=== PATIENT | male | born 1935 | race Caucasian/White ===

== ENCOUNTER 2017-09-05 13:14 | Outpatient (CLI) | payer MEDICARE, OTHER, SELFPAY ==
[2017-09-05] VITALS (10 sets, daily range): BP systolic 148–167; BP diastolic 53–95; PULSE 49–55; RESP 16–18; TEMP 36.2; O2SAT 96–99
--- NOTE | 2017-09-05 13:16 | DI.RAD.S_ITS ---
PROCEDURE: PAIN L/SI FACET INJ/BLK 1STL INDICATIONS: Lumbosacral spondylosis with facet arthropathy FINDINGS: Fluoroscopic spot filming was performed to verify placement of spinal needles at the right and left L5-S1 level(s), as labeled on the films. Appropriate location(s) of the needle tip(s) was confirmed by injection of iodinated contrast. IMPRESSION: Successful needle tip localization at the right and left L5-S1 facet region for epidural steroid injection. Dictated by: Sanket Garcia M.D. on 09/05/2017 at 16:25 Approved by: Sanket Garcia M.D. on 09/05/2017 at 16:34
--- NOTE | 2017-09-05 13:55 | PM.PROC.1 ---
Procedures Date/Time Date of procedure: 09/05/17 Time of procedure: 13:55 General Procedure description: PREOP DIAGNOSIS 1. FACET ARTHROPATHY, 2. AXIAL LBP, 3. MULTILEVEL DDD, POST OP DIAGNOSIS 1. FACET ARTHROPATHY, 2. AXIAL LBP, 3. MULTILEVEL DDD, PROCEDURES 1. FLUORSCOPICALLY GUIDED CONTRAST CONTROLLED FACET JOINT INJECTIONS BILATERAL L5/S1 PHUSICIAN: Pablo Mandujano, INDICATIONS Wounds then is referred by for treatment of Axial LBP FINDINGS Multilevel Facet Arthropathy with Clinically significant axial LBP DESCRIPTION OF PROCEDURE Fluoroscopically guided, contrast-controlled bilateral L5/S1 facet joint injections. Following denial of allergy and review of potential side effects and complications, including, but not necessarily limited to, infection, allergic reaction, local tissue breakdown, stroke, temporary or permanent nerve injury, paralysis, and possible , the patient indicated that the patient understood and agreed to proceed. An informed consent document was signed by the patient, witnessed by a nurse, and placed in the patient's chart. Additionally, other treatment options including medications, modalities, and physical therapy were reviewed with the patient. After review of previous anaesthesic history and IV conscious sedation the patient was deemed safe to proceed with todays procedure with IV conscious sedation as ASA class II designation. Safety time-out was performed to confirm patient ID, procedure to be performed and site of procedure. IV sedation was accomplished with a combination of 2mg of Versed administered by the RN after DO order, titrated to patient comfort during the course of the procedure while the patient remained responsive to all verbal commands In the prone position, following sterile prep and drape of the lumbar region, the posterior aspect of the L5/S1 facet joints were identified fluoroscopically. The skin was anesthetized via a 25-gauge 1.5-inch needle with 1% lidocaine solution into the corresponding facet joints. At this point, a 22-gauge 5-inch spinal needle was atraumatically introduced and advanced under fluoroscopic guidance into the corresponding facet joints. Following negative aspiration, injections of approximately 0.2-cc of Isovue 200 confirmed interarticular placement without vascular uptake. The identical procedure was then performed at the L5/S1 facet joints on the left. Radiological data, including multiple fluoroscopic views of the lumbosacral spine, reveal a spinal needle at the L5/S1 facet joints bilaterally. Subsequent views show flow of contrast material both superiorly and inferiorly within the joint space without vascular or intrathecal uptake. At this point, a total of 0.5 cc including a mixture of 0.25 cc Marcaine and 0.25 cc betamethasone was injected without complication into each of the corresponding facet joints. The procedure tolerated the procedure well without signs or symptoms of complications prior to transfer to the recovery area continued monitoring without incident. The patient was then transferred to the recovery area where they were observed for an appropriate period of time after the injection. The patient reported a VAS score of 7 prior to the procedure and a post-procedure VAS of 0. Total Fluoroscopy Time: 21.0 seconds Total conscious sedation time: 24 min POST OP INSTRUCTIONS The patient was provided a Pain Log to continue to record their response to the target-specific procedure prior to follow-up visit with their referring physician. Additionally, specific post-injection care instructions and a contact number to our office were provided if concerns arise regarding possible complications associated with the procedure are suspected. Pablo Mandujano, Complications: none
[2017-09-05] MEDS: MIDAZOLAM 5 MG/5 ML VIAL IV (13:56)
[2017-09-05] MEDS: BUPIVACAINE 0.5% (PF) VIAL 2 ML INJ (14:01)
[2017-09-05] MEDS: LIDOCAINE 1% 20 ML INJ 5 ML INJ (14:01)
[2017-09-05] MEDS: BETAMETHASONE 30 MG/5 ML MDV 12 MG INJ (14:01)
[2017-09-05] MEDS: IOPAMIDOL 15 ML VIAL 3 ML INJ (14:01)
--- NOTE | 2017-09-06 15:21 | PC.NURSE ---
FOLLOW UP CALL MADE, PT STATES HE FEELS WONDERFUL AND STATES HIS PAIN IS 2/10. DENIES QUESTIONS OR CONCERNS AT THIS TIME. ADVISED TO CALL OFFICE # IF ANYTHING COMES UP AND THAT WE LOOK FORWARD TO SEEING HIM AT HIS FOLLOW UP APPT.
== END 2017-09-05 14:49 | disposition home or self-care (01) ==
PROVIDERS: PCP Family Medicine; Visit Provider Physical Medicine & Rehabilitation
DX: M47.817 Spondylosis without myelopathy or radiculopathy, lumbosacral region (principal); M51.37 Other intervertebral disc degeneration, lumbosacral region; M54.5 Low back pain; Z98.1 Arthrodesis status
CPT/HCPCS: 64493; 99152; J0702; J2250

== ENCOUNTER 2017-10-03 12:52 | Outpatient (CLI) | payer MEDICARE, OTHER, SELFPAY ==
[2017-10-03] VITALS (11 sets, daily range): BP systolic 125–165; BP diastolic 50–76; PULSE 65–73; RESP 16–20; TEMP 36.2; O2SAT 94–99
--- NOTE | 2017-10-03 12:53 | DI.RAD.S_ITS ---
PROCEDURE: PAIN L/S FACET INJ/BLK 1ST NASIMA COMPARISON: None. INDICATIONS: Lumbosacral spondylosis status post fusion FINDINGS: 6 images show bilateral L5 and S1 needle tip localization is 4 medial branch block of these individual bilateral nerve roots. IMPRESSION: Successful needle tip localization for bilateral L5 and S1 medial nerve root branch locking. Dictated by: Sanket Garcia M.D. on 10/03/2017 at 16:14 Approved by: Sanket Garcia M.D. on 10/03/2017 at 16:15
--- NOTE | 2017-10-03 13:02 | PM.PROC.1 ---
Procedures Date/Time Date of procedure: 10/03/17 Time of procedure: 13:02 General Procedure description: POST OP DIAGNOSIS 1. FACET ARTHROPATHY PROCEDURES 1. BILATERAL- L5 and S1 MB BLOCKS PHYSICIAN: DO MIRA Ulrich Angelito is referred by Dr. Sorenson for treatment of Bilateral Axial LBP. DESCRIPTION OF PROCEDURE Fluoroscopically guided, contrast-controlled bilateral L5 and S1 medial branch blocks with 0.5cc of 0.5% Marcaine. Following denial of allergy and review of potential side effects and complications, including, but not necessarily limited to, infection, allergic reaction, local tissue breakdown, nerve injury, paralysis, stroke and possible , the patient indicated that the patient understood and agreed to proceed. An informed consent document was signed by the patient, witnessed by a nurse, and placed in the patient's chart. After review of previous anaesthesic history and IV conscious sedation the patient was deemed safe to proceed with todays procedure with IV conscious sedation as ASA class II designation. Safety time-out was performed to confirm patient ID, procedure to be performed and site of procedure. IV sedation was accomplished with a combination of 4mg of Versed was administered by the RN after DO order, titrated to patient comfort during the course of the procedure while the patient remained responsive to all verbal commands In the prone position, following sterile prep and drape of the lumbar region, the right L5 and S1 anatomical location of the medial branch of the dorsal ramus was identified fluoroscopically. Subsequently an anesthetic skin wheal using 1% lidocaine solution was initiated at each of the anatomical spots. Subsequently then a 22-gauge 3.5-inch spinal needle was atraumatically introduced and advanced under fluoroscopic guidance at each of the corresponding sites at the right L5 and S1 MB. After negative aspiration, 0.2 cc of Isovue 200 was injected, confirming placement without vascular or intrathecal uptake. Subsequently then 0.5 cc of 0.5% Marcaine solution was injected at each of the corresponding sites at the right L5 and S1 medial branch locations. The identical procedure was replicated on the left. The patient tolerated the procedure well without signs or symptoms of complications. The patient tolerated the procedure well without signs or symptoms of complications prior to transfer to the recovery area continued monitoring without incident. Post-procedure, the patient was monitored initiating provocative activities to measure the amount of relief from block of the facetogenic pain. The patient reported a VAS of 7 prior to the procedure and a post-procedure VAS of 1. It has been a pleasure to assist in the diagnostic and therapeutic care of your patient. Total Fluoroscopy Time: 24.8 seconds Total Conscious Sedation Time: 24min POST OP INSTRUCTIONS The patient was provided with a Pain Log to complete over the next several hours and subsequent days prior to the patient's follow up with the ordering physician. If the patient has assistant superintendent for curriculum relief to the solution applied, then they may be a candidate for medial branch rhizotomy. The patient is aware, was provided, once again, with a Pain Log and will follow up with the referring physician for review and clinical correlation Pablo Mandujano DO Complications: none
[2017-10-03] MEDS: MIDAZOLAM 5 MG/5 ML VIAL IV (13:26)
[2017-10-03] MEDS: BUPIVACAINE 0.5% (PF) VIAL 2 ML INJ (13:32)
[2017-10-03] MEDS: IOPAMIDOL 15 ML VIAL 3 ML INJ (13:33)
[2017-10-03] MEDS: LIDOCAINE 1% 20 ML INJ 10 ML INJ (13:33)
--- NOTE | 2017-10-04 14:10 | PC.NURSE ---
FOLLOW UP PHONE CALL MADE. PT C/O NIGHT SWEATS AND INSOMNIA AFTER PROCEDURE. ENSURED PT THAT THOSE ARE BOTH COMMON SIDE EFFECTS OF MEDICATION USED AND THAT THEY WILL DECREASE. SUGGESTED PT USE OTC IBUPROFEN OR TYLENOL FOR NIGHT SWEATS AND OTC SLEEP AID FOR INSOMNIA. PT DENIED OTHER CONCERNS.
== END 2017-10-03 14:13 ==
LOC: RAD 12:53
PROVIDERS: PCP Family Medicine; Visit Provider Physical Medicine & Rehabilitation
DX: M47.817 Spondylosis without myelopathy or radiculopathy, lumbosacral region (principal); Z98.1 Arthrodesis status
CPT/HCPCS: 64493; 99152; J2250

== ENCOUNTER 2017-11-22 10:30 | Outpatient (CLI) | payer MEDICARE, OTHER, SELFPAY ==
[2017-11-22] VITALS (18 sets, daily range): BP systolic 132–178; BP diastolic 64–109; PULSE 53–65; RESP 12–20; TEMP 36.4; O2SAT 93–98
--- NOTE | 2017-11-22 10:31 | DI.RAD.S_ITS ---
PROCEDURE: PAIN L/S MED/LAT N RFA BILAT INDICATIONS: Lumbosacral spondylosis status post fusion FINDINGS: Fluoroscopic spot filming was performed to verify placement of spinal needles at the left L5 and S1 level(s), as labeled on the films. Due to technologist error, the right-sided images were not saved. Dictated by: Manuel Rosas M.D. on 11/22/2017 at 13:33 Approved by: Manuel Rosas M.D. on 11/22/2017 at 13:35
--- NOTE | 2017-11-22 10:39 | PC.NURSE ---
constant lower back pain, non radiating, denies fever,chills and vomiting,.
[2017-11-22] MEDS: BUPIVACAINE 0.25% (PF) VIAL 30 ML INJ (11:15)
[2017-11-22] MEDS: MIDAZOLAM 5 MG/5 ML VIAL IV (11:16)
[2017-11-22] MEDS: LIDOCAINE 1% 20 ML INJ INJ (11:16)
[2017-11-22] MEDS: fentaNYL 100 MCG/2 ML INJ 50 MCG IV (11:47)
--- NOTE | 2017-11-22 12:01 | PC.NURSE ---
getting pt off gurney and into W/C, pt alert and able to transfer to w/c with minimal assist. taking to pre procedure room.
--- NOTE | 2017-11-22 12:11 | P.PCN_ITS ---
Procedures Date/Time Date of procedure: 11/22/17 Time of procedure: 12:09 General Procedure description: PREOP DIAGNOSIS 1. RECALCITRANT FACET ARTHROPATHY, POST OP DIAGNOSIS 1. RECALCITRANT FACET ARTHROPATHY PROCEDURES 1. BILATERAL L5 MEDIAL BRANCH RADIOFREQUENCY NEUROTOMY AND S1 DORSAL RAMUS BRANCH RADIOFREQUENCY NEUROTOMY, PHYSICIAN: Pablo Mandujano DO INDICATIONS: is referred by for treatment of facet arthropathy. DESCRIPTION OF PROCEDURE Right and L5 medial branch radiofrequency neurotomy and right S1 dorsal ramus radiofrequency neurotomy under fluoroscopy with conscious sedation. The patient is well known to this clinic having undergone previous facet injections with good but temporary relief. The patient has experienced appropriate, concordant relief with previous facet and median branch blocks but the patient's pain has been recalcitrant to further conservative measures. Therefore, based upon the patient's relief and persistent symptoms, the patient is considered an appropriate candidate for facet rhizotomy. All of the patient' s questions regarding the risks versus benefits of the procedure, including, but not limited to, bleeding, infection, temporary as well as lasting nerve injury, paralysis, stroke, and , as well treatment alternatives were answered to satisfaction. After obtaining informed consent, denial of pertinent drug allergies, as well as being made aware of the potential risks of bleeding, infection, spinal cord trauma, paralysis, temporary and permanent nerve damage, seizure, stroke, and possible , the patient was brought to the fluoroscopy suite and positioned prone on the fluoroscopy table. The lumbar region was prepped with Betadine and covered with a fenestrated drape in the usual sterile fashion. Appropriate monitors applied including pulse oximeter, pulse, and blood pressure for regular monitoring throughout the procedure. After review of previous anaesthesic history and IV conscious sedation the patient was deemed safe to proceed with todays procedure with IV conscious sedation as ASA class II designation. Safety time-out was performed to confirm patient ID, procedure to be performed and site of procedure. IV sedation was accomplished with a combination of 5mg of Versed and 50mcg of Fentanyl administered by the RN after DO order, titrated to patient comfort during the course of the procedure while the patient remained responsive to all verbal commands. After local infiltration using 1% lidocaine, under fluoroscopic guidance, a 10- cm RF insulated needle with a 10-mm active tip was positioned parallel to the junction of the right sacral ala and the superior articulating process where the S1 dorsal ramus resides. Needle placement was confirmed with sensory stimulation at 50 Hz, with motor stimulation of .5v on the right which produced local stimulation without radicular component. The stimulation was then increased to 1.5v with, once again, only local multifidus stimulation without radicular component. This was then followed by two discreet lesions performed at 80 degrees Celsius for 90 seconds each. The needle was then removed and the identical procedure was performed along the length of the right L5 medial branch with motor stimulation at .7v on the right. The identical procedure was repeated on the left. The patient tolerated the procedure well without signs or symptoms of complications prior to transfer to the recovery area continued monitoring without incident. The patient was then transferred to the recovery area where they were observed for an appropriate period of time after the injection. The patient reported a VAS score of 9 prior to the procedure and a post-procedure VAS of 0. Total Fluoroscopy Time: 22.7 seconds Total Conscious Sedation Time: 34min POST OP INSTRUCTIONS The patient was provided a Pain Log to continue to record the patient's response to the target-specific procedure prior to the patient's follow-up visit with the referring physician. Additionally, specific post-injection care instructions and a contact number to our office were provided if concerns arise regarding possible complications associated with the procedure are suspected. Pablo Mandujano DO Complications: none
--- NOTE | 2017-11-22 12:12 | PC.NURSE ---
accepted care of pt at 1206 in post op area. pt in stable condition
== END 2017-11-22 12:43 | disposition home or self-care (01) ==
LOC: RAD 10:31
PROVIDERS: PCP Family Medicine; Visit Provider Physical Medicine & Rehabilitation
DX: M47.817 Spondylosis without myelopathy or radiculopathy, lumbosacral region (principal); M46.96 Unspecified inflammatory spondylopathy, lumbar region; Z98.1 Arthrodesis status
CPT/HCPCS: 64635; 99152; 99153; J2250; J3010

== ENCOUNTER → 2018-07-25 09:22 | Outpatient (CLI) | payer MEDICARE, OTHER, SELFPAY ==
--- NOTE | 2018-07-25 09:25 | DI.RAD.S_ITS ---
PROCEDURE: XR LUMBAR SPINE MIN 4V INDICATIONS: Lower Back pain TECHNIQUE: 5 views of the lumbar spine were acquired. COMPARISON: None. FINDINGS: Bones: 5 nonrib-bearing vertebrae are present. Patient is status post laminectomy and transpedicular fusion at L3-L5 levels with intervertebral spacer placement at L3-4 and L4-5 levels. No gross hardware loosening or failure. There is normal bony alignment. No vertebral body compression fractures. Degenerative endplate changes are noted at L2-3 and L5-S1 levels. No suspicious bony lesions. Soft tissues: Overlying bowel gas pattern is normal. No suspicious soft tissue calcifications. Oblique images: No gross pars defects. No significant neuroforaminal narrowing. IMPRESSION: Post fusion changes at L3-L5 levels with anatomic lumbar spine alignment. No gross hardware complication. No acute compression fracture or spondylolisthesis. No significant neuroforaminal narrowing. Dictated by: Prasanna Ambrocio M.D. on 07/25/2018 at 12:53 Approved by: Prasanna Ambrocio M.D. on 07/25/2018 at 12:56
== END ==
PROVIDERS: PCP Family Medicine; Visit Provider Physical Medicine & Rehabilitation
DX: M54.5 Low back pain (principal); M47.816 Spondylosis without myelopathy or radiculopathy, lumbar region; M47.817 Spondylosis without myelopathy or radiculopathy, lumbosacral region; Z98.1 Arthrodesis status; M46.93 Unspecified inflammatory spondylopathy, cervicothoracic region; N28.9 Disorder of kidney and ureter, unspecified
CPT/HCPCS: 72110; 99214

== ENCOUNTER 2018-08-07 12:55 | Outpatient (CLI) | payer MEDICARE, OTHER, SELFPAY ==
[2018-08-07] VITALS (9 sets, daily range): BP systolic 130–160; BP diastolic 59–74; PULSE 56–65; RESP 16–18; TEMP 36.1; O2SAT 92–97
--- NOTE | 2018-08-07 12:56 | DI.RAD.S_ITS ---
PROCEDURE: PAIN L/SI FACET INJ/BLK 1STL INDICATIONS: 53771, [id number] Bilateral L2/3, L5/S1 Facet Injection FINDINGS: Fluoroscopic spot filming was performed to verify placement of spinal needles at the L2-L3 and L5-S1 level(s) Appropriate location(s) of the needle tip(s) was confirmed by injection of iodinated contrast. Dictated by: Manuel Rosas M.D. on 08/07/2018 at 15:03 Approved by: Manuel Rosas M.D. on 08/07/2018 at 15:06
[2018-08-07] MEDS: MIDAZOLAM 5 MG/5 ML VIAL IV (13:38)
[2018-08-07] MEDS: fentaNYL 100 MCG/2 ML INJ 50 MCG IV (13:40)
[2018-08-07] MEDS: IOPAMIDOL 15 ML VIAL 3 ML INJ (13:45)
[2018-08-07] MEDS: BUPIVACAINE 0.5% (PF) VIAL 2 ML INJ (13:46)
[2018-08-07] MEDS: LIDOCAINE 1% 20 ML INJ 5 ML INJ (13:46)
[2018-08-07] MEDS: BETAMETHASONE 30 MG/5 ML MDV 12 MG INJ (13:46)
--- NOTE | 2018-08-07 13:58 | PC.NURSE ---
Pt returned via wheelchair awake and alert and able to transfer from w/c to chair with standby assist. Resumed monitoring from Urmila HUBBARD.
--- NOTE | 2018-08-07 14:00 | P.PCN_ITS ---
Procedures Date/Time Date of procedure: 08/07/18 Time of procedure: 13:58 General Procedure description: PREOP DIAGNOSIS 1. FACET ARTHROPATHY, 2. AXIAL LBP, 3. MULTILEVEL DDD, POST OP DIAGNOSIS 1. FACET ARTHROPATHY, 2. AXIAL LBP, 3. MULTILEVEL DDD, PROCEDURES 1. FLUORSCOPICALLY GUIDED CONTRAST CONTROLLED FACET JOINT INJECTIONS BILATERAL L2/3, L5/S1 SURGEON: Pablo Mandujano, INDICATION Angelito is referred by Dr. Sorenson is referred for treatment of Axial LBP FINDINGS Multilevel Facet Arthropathy with Clinically significant axial LBP DESCRIPTION OF PROCEDURE Fluoroscopically guided, contrast-controlled bilateral L2/3, L3/4 facet joint injections. Following review of allergy and review of potential side effects and complications, including, but not necessarily limited to, infection, allergic reaction, local tissue breakdown, stroke, temporary or permanent nerve injury, paralysis, and possible , the patient indicated that the patient understood and agreed to proceed. An informed consent document was signed by the patient, witnessed by a nurse, and placed in the patient's chart. Additionally, other treatment options including medications, modalities, and physical therapy were reviewed with the patient. After review of previous anaesthesic history and IV conscious sedation the patient was deemed safe to proceed with todays procedure with IV conscious sedation as ASA class II designation. Safety time-out was performed to confirm patient ID, procedure to be performed and site of procedure. IV sedation was accomplished with a combination of 4mg of Versed and 50mcg of Fentanyl administered by the RN after DO order, titrated to patient comfort during the course of the procedure while the patient remained responsive to all verbal commands In the prone position, following sterile prep and drape of the lumbar region, the posterior aspect of the L2/3, L5/S1 facet joints were identified fluoroscopically. The skin was anesthetized via a 25-gauge 1.5-inch needle with 1% lidocaine solution into the corresponding facet joints. At this point, a 22- gauge 3.5-inch spinal needle was atraumatically introduced and advanced under fluoroscopic guidance into the corresponding facet joints. Following negative aspiration, injections of approximately 0.2-cc of Isovue 200 confirmed interarticular placement without vascular uptake. The identical procedure was then performed at the L2/3, L5/S1 facet joints on the left. Radiological data, including multiple fluoroscopic views of the lumbosacral spine, reveal a spinal needle at the L2/3, L5/S1 facet joints bilaterally. Subsequent views show flow of contrast material both superiorly and inferiorly within the joint space without vascular or intrathecal uptake. At this point, a total of 0.5cc including a mixture of 0.25cc Marcaine and 0.25cc betamethasone was injected without complication into each of the corresponding facet joints. The patient tolerated the procedure well without signs or symptoms of complications prior to transfer to the recovery area continued monitoring without incident. The patient was then transferred to the recovery area where they were observed for an appropriate period of time after the injection. The patient reported a VAS score of 7 prior to the procedure and a post-procedure VAS of 0. Total Fluoroscopy Time: 20.3 seconds Total Conscious Sedation Time: 24min POST OP INSTRUCTIONS The patient was provided a Pain Log to continue to record their response to the target-specific procedure prior to follow-up visit with their referring physician. Additionally, specific post-injection care instructions and a contact number to our office were provided if concerns arise regarding possible complications associated with the procedure are suspected. Pablo Mandujano DO Complications: none
== END 2018-08-07 14:56 ==
LOC: RAD 12:56
PROVIDERS: PCP Family Medicine; Visit Provider Physical Medicine & Rehabilitation
DX: M47.817 Spondylosis without myelopathy or radiculopathy, lumbosacral region (principal); M47.816 Spondylosis without myelopathy or radiculopathy, lumbar region; M54.5 Low back pain; M51.36 Other intervertebral disc degeneration, lumbar region; M51.37 Other intervertebral disc degeneration, lumbosacral region
CPT/HCPCS: 64493; 64494; 99152; 99153; J0702; J2250; J3010

== ENCOUNTER 2018-10-04 14:47 | Outpatient (CLI) | payer MEDICARE, OTHER, SELFPAY ==
[2018-10-04] VITALS (8 sets, daily range): BP systolic 118–143; BP diastolic 49–65; PULSE 63–72; RESP 16–18; TEMP 36.4; O2SAT 95–98
--- NOTE | 2018-10-04 14:50 | DI.RAD.S_ITS ---
PROCEDURE: PAIN L/S FACET INJ/BLK 1ST [facility]IMA COMPARISON: [facility], XA, PAIN L/S FACET INJ/BLK 1ST [facility]IMA, 10/03/2017, 13:28. INDICATIONS: SPONDYLOSIS FINDINGS: Fluoroscopic guidance is present is overlying L2-3, L5-S1. Fusion hardware is also present. IMPRESSION: Fluoroscopic needle guidance as above. Dictated by: Alejandra Tripp M.D. on 10/04/2018 at 18:31 Approved by: Alejandra Tripp M.D. on 10/04/2018 at 18:32
[2018-10-04] MEDS: MIDAZOLAM 5 MG/5 ML VIAL IV (15:44)
[2018-10-04] MEDS: fentaNYL 100 MCG/2 ML INJ 50 MCG IV (15:44)
[2018-10-04] MEDS: IOPAMIDOL 15 ML VIAL 3 ML INJ (15:46)
[2018-10-04] MEDS: LIDOCAINE 1% 20 ML 10 ML INJ (15:46)
[2018-10-04] MEDS: BETAMETHASONE 30 MG/5 ML MDV 12 MG INJ (15:47)
[2018-10-04] MEDS: BUPIVACAINE 0.5% (PF) VIAL 2 ML INJ (15:47)
--- NOTE | 2018-10-04 16:07 | P.PCN_ITS ---
Procedures Date/Time Date of procedure: 10/04/18 Time of procedure: 16:07 General Procedure description: Procedure description: 1. FACET ARTHROPATHY PROCEDURES: 1. BILATERAL- L2, L3, L5 and S1 MB BLOCKS PHYSICIAN: DO MIRA Ulrich Angelito is referred by for treatment of Bilateral Axial LBP. DESCRIPTION OF PROCEDURE Fluoroscopically guided, contrast-controlled bilateral L2, L3, L5 and S1 medial branch blocks with 0.5cc of 0.5% Marcaine. Following review of allergy and review of potential side effects and complications, including, but not necessarily limited to, infection, allergic reaction, local tissue breakdown, nerve injury, paralysis, stroke and possible , the patient indicated that the patient understood and agreed to proceed. An informed consent document was signed by the patient, witnessed by a nurse, and placed in the patient's chart. After review of previous anaesthesic history and IV conscious sedation the patient was deemed safe to proceed with todays procedure with IV conscious sedation as ASA class II designation. Safety time-out was performed to confirm patient ID, procedure to be performed and site of procedure. IV sedation was accomplished with a combination of 3mg of Versed and 50mcg of Fentanyl was administered by the RN after DO order, titrated to patient comfort during the course of the procedure while the patient remained responsive to all verbal commands In the prone position, following sterile prep and drape of the lumbar region, the right L2, L3, L5 and S1 anatomical location of the medial branch of the dorsal ramus was identified fluoroscopically. Subsequently an anesthetic skin wheal using 1% lidocaine solution was initiated at each of the anatomical spots. Subsequently then a 22-gauge 3.5-inch spinal needle was atraumatically introduced and advanced under fluoroscopic guidance at each of the corresponding sites at the right L2, L3, L5 and S1 MB. After negative aspiration, 0.2 cc of Isovue 200 was injected, confirming placement without vascular or intrathecal uptake. Subsequently then 0.5 cc of 0.5% Marcaine solution was injected at each of the corresponding sites at the right L2, L3, L5 and S1 medial branch locations. The identical procedure was replicated on the left. The patient tolerated the procedure well without signs or symptoms of complications prior to transfer to the recovery area continued monitoring without incident. Post-procedure, the patient was monitored initiating provocative activities to measure the amount of relief from block of the facetogenic pain. The patient reported a VAS of 7 prior to the procedure and a post-procedure VAS of 1. It has been a pleasure to assist in the diagnostic and therapeutic care of your patient. Total Fluoroscopy Time: 24.8 seconds Total Conscious Sedation Time: 24min POST OP INSTRUCTIONS The patient was provided with a Pain Log to complete over the next several hours and subsequent days prior to the patient's follow up with the ordering physician. If the patient has equity sales assistant relief to the solution applied, then they may be a candidate for medial branch rhizotomy. The patient is aware, was provided, once again, with a Pain Log and will follow up with the referring physician for review and clinical correlation Pablo Mandujano DO
--- NOTE | 2018-10-04 16:07 | PC.NURSE ---
Procedural nurses note: VSS throughout procedure. Patient awake and responding to verbal commands. Sat up and transfered to wheelchair without difficulty. Stable for transfer to post procedure recovery room. Hand-off report given to Urmila HUBBARD.
--- NOTE | 2018-10-04 16:17 | PC.NURSE ---
ACCEPTED CARE OF PT IN POST PROC AREA IN STABLE CONDITION
== END 2018-10-04 16:39 | disposition home or self-care (01) ==
PROVIDERS: PCP Family Medicine; Visit Provider Physical Medicine & Rehabilitation
DX: M47.817 Spondylosis without myelopathy or radiculopathy, lumbosacral region (principal); M46.96 Unspecified inflammatory spondylopathy, lumbar region; Z98.1 Arthrodesis status
CPT/HCPCS: 64493; 64494; 99152; J0702; J2250; J3010

== ENCOUNTER 2018-12-06 07:26 | Outpatient (CLI) | payer MEDICARE, OTHER, SELFPAY ==
[2018-12-06] VITALS (17 sets, daily range): BP systolic 134–161; BP diastolic 65–86; PULSE 58–70; RESP 16; TEMP 36.1; O2SAT 95–100
--- NOTE | 2018-12-06 07:28 | DI.RAD.S_ITS ---
PROCEDURE: PAIN L/S MED/LAT N RFA BILAT INDICATIONS: SPONDYLOSIS FINDINGS: Fluoroscopic spot filming was performed to verify placement of spinal needles at the L2, L3, L5 and S1 level(s), as labeled on the films. Appropriate location(s) of the needle tip(s) was confirmed by injection of iodinated contrast. IMPRESSION: Fluoroscopy for pain management. Dictated by: Virgilio Martinez M.D. on 12/06/2018 at 17:37 Approved by: Virgilio Martinez M.D. on 12/06/2018 at 17:39
[2018-12-06] MEDS: fentaNYL 100 MCG/2 ML INJ 50 MCG IV (08:50)
[2018-12-06] MEDS: BUPIVACAINE 0.5% (PF) VIAL 5 ML INJ (09:06)
[2018-12-06] MEDS: LIDOCAINE 1% 20 ML 10 ML INJ (09:07)
[2018-12-06] MEDS: BETAMETHASONE 30 MG/5 ML MDV 12 MG INJ (09:07)
[2018-12-06] MEDS: MIDAZOLAM 5 MG/5 ML VIAL IV (09:22)
--- NOTE | 2018-12-06 09:47 | PC.NURSE ---
ASSISTING PT OFF TABLE AND TRANSPORTING TO POST PROC AREA IN STABLE CONDITION. PASSING RN CARE OF PT OFF TO URIEL Early RN.
--- NOTE | 2018-12-06 10:34 | P.PCN_ITS ---
Procedures Date/Time Date of procedure: 12/06/18 Time of procedure: 09:34 General Procedure description: PREOP DIAGNOSIS 1. RECALCITRANT FACET ARTHROPATHY, POST OP DIAGNOSIS 1. RECALCITRANT FACET ARTHROPATHY PROCEDURES 1. BILATERAL L2, L3, L5 MEDIAL BRANCH RADIOFREQUENCY NEUROTOMY AND S1 DORSAL RAMUS BRANCH RADIOFREQUENCY NEUROTOMY, PHYSICIAN: Pablo Mandujano DO INDICATIONS: Angelito is referred by Dr. Sorenson for treatment of facet arthropathy. DESCRIPTION OF PROCEDURE Bilateral L2, L3, L5 medial branch radiofrequency neurotomy and right S1 dorsal ramus radiofrequency neurotomy under fluoroscopy with conscious sedation. The patient is well known to this clinic having undergone previous facet injections with good but temporary relief. The patient has experienced appropriate, concordant relief with previous facet and median branch blocks but the patient's pain has been recalcitrant to further conservative measures. Therefore, based upon the patient's relief and persistent symptoms, the patient is considered an appropriate candidate for facet rhizotomy. All of the patient's questions regarding the risks versus benefits of the procedure, including, but not limited to, bleeding, infection, temporary as well as lasting nerve injury, paralysis, stroke, and , as well treatment alternatives were answered to satisfaction. After obtaining informed consent, denial of pertinent drug allergies, as well as being made aware of the potential risks of bleeding, infection, spinal cord trauma, paralysis, temporary and permanent nerve damage, seizure, stroke, and possible , the patient was brought to the fluoroscopy suite and positioned prone on the fluoroscopy table. The lumbar region was prepped with Betadine and covered with a fenestrated drape in the usual sterile fashion. Appropriate monitors applied including pulse oximeter, pulse, and blood pressure for regular monitoring throughout the procedure. After review of previous anaesthesic history and IV conscious sedation the patient was deemed safe to proceed with todays procedure with IV conscious sedation as ASA class II designation. Safety time-out was performed to confirm patient ID, procedure to be performed and site of procedure. IV sedation was accomplished with a combination of 5mg of Versed and 50mcg of Fentanyl administered by the RN after DO order, titrated to patient comfort during the course of the procedure while the patient remained responsive to all verbal commands. After local infiltration using 1% lidocaine, under fluoroscopic guidance, a 10- cm RF insulated needle with a 10-mm active tip was positioned parallel to the junction of the right sacral ala and the superior articulating process where the S1 dorsal ramus resides. Needle placement was confirmed with sensory stimulation at 50 Hz, with motor stimulation of .5v on the right which produced local stimulation without radicular component. The stimulation was then increased to 1.5v with, once again, only local multifidus stimulation without radicular component. This was then followed by two discreet lesions performed at 80 degrees Celsius for 90 seconds each. The needle was then removed and the identical procedure was performed along the length of the right L5 medial branch with motor stimulation at .7v on the right. The identical procedure was once again performed along the length of the right L3 medial branch with motor stimulation of .5v on the right. The identical procedure was once again performed along the length of the right L2 medial branch with motor stimulation of .5v on the right. Attention was then refocused to the left where the identical procedure was repeated. The patient tolerated the procedure well without signs or symptoms of complications prior to transfer to the recovery area continued monitoring without incident. The patient was then transferred to the recovery area where they were observed for an appropriate period of time after the injection. The patient reported a VAS score of 9 prior to the procedure and a post-procedure VAS of 0. Total Fluoroscopy Time: 22.7 seconds Total Conscious Sedation Time: 34min POST OP INSTRUCTIONS The patient was provided a Pain Log to continue to record the patient's response to the target-specific procedure prior to the patient's follow-up visit with the referring physician. Additionally, specific post-injection care instructions and a contact number to our office were provided if concerns arise regarding possible complications associated with the procedure are suspected. Pablo Mandujano DO Complications: none
--- NOTE | 2018-12-06 13:52 | PC.NURSE ---
Discharge note late entry: VSS on arrival post procedure. O2 sat WNL. Tolerated PO. discharge instructions reviewed with good understanding. Pain level 0/10. Discharged to home w/c to car at 1020
== END 2018-12-06 10:20 ==
LOC: RAD 07:27
PROVIDERS: PCP Family Medicine; Visit Provider Physical Medicine & Rehabilitation
DX: M47.816 Spondylosis without myelopathy or radiculopathy, lumbar region (principal); M47.817 Spondylosis without myelopathy or radiculopathy, lumbosacral region
CPT/HCPCS: 64635; 64636; 99152; 99153; J0702; J2250; J3010

== ENCOUNTER → 2019-07-03 13:25 | Outpatient (CLI) | payer MEDICARE, OTHER, SELFPAY ==
--- NOTE | 2019-07-03 13:28 | DI.MRI.S_ITS ---
PROCEDURE: MR LUMBAR SPINE WO CON INDICATIONS: Low back pain status post lumbar fusion TECHNIQUE: Noncontrast sagittal T1 spin echo and T2 fast echo, sagittal STIR, axial T1 and T2 fast spin echo through the lumbar spine. In cases with scoliosis, additional coronal T2 fast spin echo may be performed. COMPARISON: [facility], CR, XR LUMBAR SPINE MIN 4V, 07/25/2018, 9:33. CT, CT LUMBAR SPINE WO CON, 08/24/2016, 12:31. CT, L-SPINE W/O CONTRAST, 08/22/2013, 8:25. FINDINGS: Image quality: Excellent. Alignment and Curvature: There is trace L5-S1 anterolisthesis. Bones: Postsurgical changes compatible with L3-L5 PLIF. Reactive endplate changes noted adjacent to the L2-L3 and L5-S1 discs. No acute vertebral body compression fractures. Spinal Cord: Conus medullaris terminates at the L1 level. Visualized cord demonstrates normal signal and size. Paraspinous Soft Tissues: No paravertebral masses. L1-L2: Loss of the signal. Mild, diffuse disc bulge. Mild bilateral facet hypertrophy. Mild narrowing of the central canal. Mild bilateral neuroforaminal narrowing. No neural compression. L2-L3: Loss of signal and height. Moderate, diffuse disc bulge. Mild facet and moderate ligamentum flavum hypertrophy. Severe narrowing of the central canal with compression of the nerve roots of the cauda equina. Severe right and moderate left neural foraminal narrowing with compression of the exiting right L2 nerve root. L3-L4: Status post fusion. Moderate bilateral facet hypertrophy. No central stenosis. Mild bilateral neural foraminal narrowing. No neural compression. L4-L5: Status post fusion. Severe bilateral facet hypertrophy. No central stenosis. Severe bilateral neural foraminal narrowing and compression of the exiting bilateral L4 nerve roots. L5-S1: Loss of the signal. Mild, diffuse disc bulge. Small central disc protrusion. Moderate right and mild left facet hypertrophy. Moderate narrowing of the central canal. Severe bilateral neural foraminal narrowing with compression of the exiting L5 nerve roots. IMPRESSION: 1. Status post L3-L5 PLIF. 2. Multilevel degenerative disease 3. Multilevel facet arthropathy. 4. Severe L2-L3 central canal stenosis with compression of the nerve roots of cauda equina. 5. Severe right L2-L3 neuroforaminal narrowing with compression of exiting right L2 nerve root. Severe bilateral L4-L5 and L5-S1 neural foraminal narrowing with compression of the exiting bilateral L4 and L5 nerve roots. Dictated by: Mei Sosa MD, PhD on 07/03/2019 at 16:25 Approved by: Mei Sosa MD, PhD on 07/03/2019 at 16:31
== END ==
PROVIDERS: PCP Family Medicine; Referring Provider Physical Medicine & Rehabilitation; Visit Provider Physical Medicine & Rehabilitation
DX: M54.5 Low back pain (principal); M47.817 Spondylosis without myelopathy or radiculopathy, lumbosacral region; M47.816 Spondylosis without myelopathy or radiculopathy, lumbar region; M48.061 Spinal stenosis, lumbar region without neurogenic claudication; M48.07 Spinal stenosis, lumbosacral region; M51.36 Other intervertebral disc degeneration, lumbar region; M51.37 Other intervertebral disc degeneration, lumbosacral region; Z98.1 Arthrodesis status
CPT/HCPCS: 72148

== ENCOUNTER → 2019-08-19 10:02 | Outpatient (CLI) | payer MEDICARE, OTHER, SELFPAY ==
[2019-08-20 09:36] LABS: COVID19 Sendout Not Detected (Not Detect)
== END ==
PROVIDERS: PCP Family Medicine; Visit Provider Student in an Organized Health Care Education/Training Program
DX: Z01.812 Encounter for preprocedural laboratory examination (principal)
CPT/HCPCS: 87635

== ENCOUNTER 2019-08-22 08:31 | Outpatient (CLI) | payer MEDICARE, OTHER, SELFPAY ==
[2019-08-22] VITALS (11 sets, daily range): BP systolic 100–124; BP diastolic 50–100; PULSE 52–60; RESP 15–18; TEMP 35.9; O2SAT 92–96
--- NOTE | 2019-08-22 08:32 | DI.RAD.S_ITS ---
PROCEDURE: PAIN L INTERLAMINAR/CAUDAL INJ INDICATIONS: SPONDYLOSIS COMPARISON: None. FINDINGS: Fluoroscopic spot filming was performed to verify placement of spinal needles at the L5-S1 disc level level(s), as labeled on the films. Appropriate location(s) of the needle tip(s) was confirmed by injection of iodinated contrast. IMPRESSION: Spinal needle at the L5-S1 disc level. Dictated by: Mei Sosa MD, PhD on 08/23/2019 at 13:47 Approved by: Mei Sosa MD, PhD on 08/23/2019 at 13:47
[2019-08-22] MEDS: MIDAZOLAM 5 MG/5 ML VIAL IV (09:22)
[2019-08-22] MEDS: fentaNYL 100 MCG/2 ML INJ 50 MCG IV (09:22)
[2019-08-22] MEDS: IOPAMIDOL 15 ML VIAL 3 ML INJ (09:26)
[2019-08-22] MEDS: BUPIVACAINE 0.25% (PF) VIAL 2 ML INJ (09:27)
[2019-08-22] MEDS: DEXAMETHASONE 10 MG/ML VIAL 20 MG INJ (09:27)
--- NOTE | 2019-08-22 09:40 | PM.PROC.IR.1 ---
Date/Time/Diagnoses Date of procedure: 08/22/19 Time of procedure: 09:40 Pre-procedure diagnosis: 1. HNP WITH RADICULAR FEATURES, 2. MULTILEVEL CENTRAL STENOSIS, Post-procedure diagnosis: same Procedure Notes Procedure: 1. FLUOROSCOPICALLY GUIDED CONTRAST CONTROLLED INTERLAMINAR EPIDURAL STEROID INJECTION - L5/S1 Indications: Angelito is referred by for treatment of Bilateral Foraminal Stenosis L>R LE symptoms. Physician: Pablo Mandujano Total Fluoroscopy time (seconds): 7 Total sedation minutes: 24 Complications: none Procedure in detail & Post-procedure care: FINDINGS Multilevel Central Spinal Stenosis with Nerve Root Compression DESCRIPTION OF PROCEDURE Fluoroscopically guided, contrast-controlled L5/S1 translaminar epidural steroid injection. Following review of allergy and review of potential side effects and complications, including, but not necessarily limited to, infection, allergic reaction, local tissue breakdown, temporary as well as permanent nerve injury, paralysis, stroke and possible , the patient indicated that the patient understood and agreed to proceed. An informed consent document was signed by the patient, witnessed by a nurse, and placed in the patient's chart. Additionally, other treatment options including modalities, medications, and physical therapy were reviewed with the patient. After review of previous anaesthesic history and IV conscious sedation the patient was deemed safe to proceed with today?s procedure with IV conscious sedation as ASA class II designation. Safety time-out was performed to confirm patient ID, procedure to be performed and site of procedure. IV sedation was accomplished with a combination of 2mg of Versed and 50mcg of Fentanyl administered by the RN after DO order, titrated to patient comfort during the course of the procedure while the patient remained responsive to all verbal commands. In the prone position, following sterile prep and drape of the lumbar region, the L5/S1 translaminar space was identified fluoroscopically. The skin was anesthetized via a 25-gauge, 1.5-inch needle with 1% lidocaine solution. At this point, a 22-gauge short bevel spinal needle was atraumatically introduced and advanced under fluoroscopic guidance into the region of the L5/S1 translaminar space. Depth was confirmed on lateral view. Radiological data, including multiple fluoroscopic views of the lumbar spine, reveal a spinal needle at the L5/S1 translaminar space. Lateral views then show placement of the needle in the epidural space. Subsequent views show contrast material flowing superiorly and inferiorly in the epidural space. No vascular or intrathecal uptake is observed. At this point, using loss of resistance technique with saline and air, the epidural space was entered. This was confirmed following negative aspiration with injection of approximately 1.5 cc of Isovue 200, showing excellent epidural flow without vascular or intrathecal uptake. At this point, 1 cc of 1% lidocaine solution combined with 3cc or 20mg of dexamethasone and 6mg of betamethasone was injected without incident. The patent tolerated the procedure without signs of symptoms of complications prior to transfer to the recovery area for further monitoring. The patient was then transferred to the recovery area where they were observed for an appropriate period of time after the injection. The patient reported a VAS score of 6 prior to the procedure and a post-procedure VAS of 0. POST OP INSTRUCTIONS The patient was provided a Pain Log to continue to record their response to the target-specific procedure prior to follow-up visit with their referring physician. Additionally, specific post-injection care instructions and a contact number to our office were provided if concerns arise regarding possible complications associated with the procedure are suspected.
--- NOTE | 2019-08-22 10:35 | PC.NURSE ---
0944: pt arrived by wc to pre proc room, stable transfer from wc to chair. monitoring resumed
--- NOTE | 2019-08-22 15:44 | PC.NURSE ---
Tolerated procedure without incident. VSS upon transfer to post procedure room to [facility]. Versed and Fentanyl administered by Gabi Phelps. All other meds given by Dr. Mandujano.
== END 2019-08-22 10:23 | disposition home or self-care (01) ==
LOC: RAD 08:31
PROVIDERS: PCP Family Medicine; Referring Provider Physical Medicine & Rehabilitation; Visit Provider Physical Medicine & Rehabilitation
DX: M51.17 Intervertebral disc disorders with radiculopathy, lumbosacral region (principal); M48.07 Spinal stenosis, lumbosacral region
CPT/HCPCS: 62323; 99152; J0702; J1100; J2250; J3010

== ENCOUNTER → 2020-07-31 13:21 | Outpatient (CLI) | payer MEDICARE, OTHER, SELFPAY ==
--- NOTE | 2020-07-31 13:27 | DI.RAD.S_ITS ---
PROCEDURE: XR LUMBAR SPINE MIN 4V INDICATIONS: BACK PAIN TECHNIQUE: 5 views of the lumbar spine were acquired, including bilateral oblique views COMPARISON: [facility], CR, XR LUMBAR SPINE MIN 4V, 07/25/2018, 9:33. FINDINGS: Bones: 5 nonrib-bearing vertebrae are present. There is normal bony alignment maintained by previously present vertical fixation rods and transverse fixation screws. These cross from L 3 through L5. No sign of device loosening or disruption. Moderate degenerative disc disease and facet osteoarthritis is present as was previously the case. This has not appreciably worsened from 07/25/18.. No vertebral body compression fractures. No suspicious bony lesions. Soft tissues: Overlying bowel gas pattern is normal. No suspicious soft tissue calcifications. Oblique images: No pars defects. IMPRESSION: Prior spine fusion as discussed without evidence of device loosening or disruption. Moderate degenerative disc disease and facet osteoarthritis previously present in July of 2018 has not worsened. No compression fracture is found. Dictated by: Sanket Garcai M.D. on 07/31/2020 at 16:52 Approved by: Sanket Garcia M.D. on 07/31/2020 at 16:54
== END ==
PROVIDERS: PCP Family Medicine; Referring Provider Physical Medicine & Rehabilitation; Visit Provider Physical Medicine & Rehabilitation
DX: M48.062 Spinal stenosis, lumbar region with neurogenic claudication (principal); M47.817 Spondylosis without myelopathy or radiculopathy, lumbosacral region; M46.96 Unspecified inflammatory spondylopathy, lumbar region; Z98.1 Arthrodesis status; N28.9 Disorder of kidney and ureter, unspecified; Z68.31 Body mass index [BMI] 31.0-31.9, adult
CPT/HCPCS: 72110; 99213

== ENCOUNTER → 2020-08-31 08:10 | Outpatient (CLI) | payer MEDICARE, OTHER, SELFPAY ==
[2020-08-31 16:04] LABS: COVID19 -Nasal RAPID Negative (Negative)
== END ==
PROVIDERS: PCP Family Medicine; Visit Provider Physical Medicine & Rehabilitation
DX: Z20.822 Contact with and (suspected) exposure to COVID-19 (principal)
CPT/HCPCS: 87635; C9803

== ENCOUNTER → 2020-09-01 10:40 | Outpatient (CLI) | payer MEDICARE, OTHER, SELFPAY ==
[2020-09-01] VITALS (8 sets, daily range): BP systolic 104–126; BP diastolic 49–58; PULSE 51–55; RESP 12–20; TEMP 35.9; O2SAT 92–99
--- NOTE | 2020-09-01 | DI.RAD.S_ITS ---
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 FINDINGS: Fluoroscopic spot filming was performed to verify placement of spinal needles at the bilateral L5-S1 and S1-S2 neural foramina. level(s), as labeled on the films. Appropriate location(s) of the needle tip(s) was confirmed by injection of iodinated contrast. IMPRESSION: Access needles placed at bilateral L5-S1 and S1-S2 neural foramina. Dictated by: Mei Sosa MD, PhD on 09/01/2020 at 15:31 Approved by: Mei Sosa MD, PhD on 09/01/2020 at 15:32
[2020-09-01] MEDS: MIDAZOLAM 5 MG/5 ML VIAL IV (11:40)
[2020-09-01] MEDS: fentaNYL 100 MCG/2 ML INJ 50 MCG IV (11:40)
[2020-09-01] MEDS: LIDOCAINE 1% 20 ML 10 ML INJ (11:48)
[2020-09-01] MEDS: BUPIVACAINE 0.5% (PF) VIAL 5 ML INJ (11:48)
--- NOTE | 2020-09-01 12:13 | P.PCN_ITS ---
Date/Time/Diagnoses Date of procedure: 09/01/20 Time of procedure: 12:13 Pre-procedure diagnosis: 1. RECALCITRANT FACET ARTHROPATHY Post-procedure diagnosis: same Procedure Notes Procedure: 1. BILATERAL L5 MEDIAL BRANCH RADIOFREQUENCY NEUROTOMY AND BILATERAL S1 DORSAL RAMUS BRANCH RADIOFREQUENCY NEUROTOMY. Indications: Angelito is referred by Dr. Sorenson for treatment of facet arthropathy. Physician: Pablo Mandujano Total Fluoroscopy time (seconds): 17 Total sedation minutes: 25 Complications: none Procedure in detail & Post-procedure care: DESCRIPTION OF PROCEDURE Bilateral L5 medial branch radiofrequency neurotomy and bilateral S1 dorsal ramus branch radiofrequency neurotomy under fluoroscopy with conscious sedation. The patient is well known to this clinic having undergone previous facet injections with good but temporary relief. The patient has experienced appropriate, concordant relief with previous facet and median branch blocks but the patient's pain has been recalcitrant to further conservative measures. Therefore, based upon the patient's relief and persistent symptoms, the patient is considered an appropriate candidate for facet rhizotomy. All of the patient's questions regarding the risks versus benefits of the procedure, including, but not limited to, bleeding, infection, temporary as well as lasting nerve injury, paralysis, stroke, and , as well treatment alternatives were answered to satisfaction. After obtaining informed consent, denial of pertinent drug allergies, as well as being made aware of the potential risks of bleeding, infection, spinal cord trauma, paralysis, temporary and permanent nerve damage, seizure, stroke, and possible , the patient was brought to the fluoroscopy suite and positioned prone on the fluoroscopy table. The lumbar region was prepped with Betadine and covered with a fenestrated drape in the usual sterile fashion. Appropriate monitors applied including pulse oximeter, pulse, and blood pressure for regular monitoring throughout the procedure. After review of previous anaesthesic history and IV conscious sedation the patient was deemed safe to proceed with today?s procedure with IV conscious sedation as ASA class II designation. Safety time-out was performed to confirm patient ID, procedure to be performed and site of procedure. IV sedation was accomplished with a combination of 2 of Versed and 50mcg of Fentanyl was administered by the RN after DO order, titrated to patient comfort during the course of the procedure while the patient remained responsive to all verbal commands. After local infiltration using 1% lidocaine, under fluoroscopic guidance, a 10- cm RF insulated needle with a 10-mm active tip was positioned parallel to the junction of the bilateral sacral ala and the superior articulating process where the S1 dorsal ramus resides. Needle placement was confirmed with motor stimulation of .5v on the right; motor stimulation of .6v on the left, which produced local stimulation without radicular component. The stimulation was then increased to 2v with, once again, only local multifidus stimulation without radicular component. This was then followed by two discreet lesions performed at 80 degrees Celsius for 90 seconds each. The needle was then removed and the identical procedure was performed along the length of the bilateral L5 medial branch with motor stimulation at .7v on the right; motor stimulation at .6v on the left. The patient tolerated the procedure well without signs or symptoms of complications prior to transfer to the recovery area continued monitoring without incident. The patient was then transferred to the recovery area where they were observed for an appropriate period of time after the injection. The patient reported a VAS score of 9 prior to the procedure and a post- procedure VAS of 0. POST OP INSTRUCTIONS The patient was provided a Pain Log to continue to record the patient's response to the target-specific procedure prior to the patient's follow-up visit with the referring physician. Additionally, specific post-injection care instructions and a contact number to our office were provided if concerns arise regarding possible complications associated with the procedure are suspected.
== END ==
PROVIDERS: PCP Family Medicine; Referring Provider Physical Medicine & Rehabilitation; Visit Provider Physical Medicine & Rehabilitation
DX: M47.817 Spondylosis without myelopathy or radiculopathy, lumbosacral region (principal)
CPT/HCPCS: 64635; 99152; 99153; J2250; J3010

== ENCOUNTER → 2020-11-17 12:35 | Outpatient (CLI) | payer MEDICARE, OTHER, SELFPAY ==
[2020-11-17 16:30] LABS: COVID19 -Nasal RAPID POSITIVE (Negative)
== END ==
PROVIDERS: PCP Family Medicine; Visit Provider Physical Medicine & Rehabilitation
DX: U07.1 COVID-19 (principal)
CPT/HCPCS: 87635; C9803

== ENCOUNTER 2020-12-03 08:46 | Outpatient (CLI) | payer MEDICARE, OTHER, SELFPAY ==
[2020-12-03] VITALS (9 sets, daily range): BP systolic 105–160; BP diastolic 52–75; PULSE 51–55; RESP 14–19; TEMP 35.8; O2SAT 93–98
--- NOTE | 2020-12-03 08:48 | DI.RAD.S_ITS ---
PROCEDURE: PAIN L INTERLAMINAR/CAUDAL INJ INDICATIONS: SPONDYLOSIS COMPARISON: [facility], XA, PAIN L INTERLAMINAR/CAUDAL INJ, 08/22/2019, 8:27. [facility], XA, PAIN L/S MED/LAT N RFA BILAT, 09/01/2020, 11:43. FINDINGS: Fluoroscopic spot filming was performed to verify placement of a spinal needle at the L5-S1 level, as labeled on the films. Appropriate location of the needle tip was confirmed by injection of iodinated contrast. IMPRESSION: No significant intraprocedural abnormality. Dictated by: Devan Estes M.D. on 12/03/2020 at 10:16 Approved by: Devan Estes M.D. on 12/03/2020 at 10:17
[2020-12-03] MEDS: MIDAZOLAM 5 MG/5 ML VIAL IV (09:37)
[2020-12-03] MEDS: fentaNYL 100 MCG/2 ML INJ 50 MCG IV (09:37)
[2020-12-03] MEDS: IOPAMIDOL 15 ML VIAL 3 ML INJ (09:42)
[2020-12-03] MEDS: BETAMETHASONE 30 MG/5 ML MDV 12 MG INJ (09:43)
[2020-12-03] MEDS: BUPIVACAINE 0.25% (PF) VIAL 2 ML INJ (09:43)
[2020-12-03] MEDS: DEXAMETHASONE 10 MG/ML VIAL 20 MG INJ (09:43)
--- NOTE | 2020-12-03 09:52 | PM.PROC.IR.1 ---
Date/Time/Diagnoses Date of procedure: 12/03/20 Time of procedure: 09:52 Pre-procedure diagnosis: 1. HNP WITH RADICULAR FEATURES, 2. MULTILEVEL CENTRAL STENOSIS, Post-procedure diagnosis: same Procedure Notes Procedure: 1. FLUOROSCOPICALLY GUIDED CONTRAST CONTROLLED INTERLAMINAR EPIDURAL STEROID INJECTION - L5/S1 Indications: Angelito is referred by Dr. Sorenson for treatment of Bilateral Foraminal Stenosis L>R LE symptoms. Physician: Pablo Mandujano Total Fluoroscopy time (seconds): 3 Total sedation minutes: 7 Complications: none Procedure in detail & Post-procedure care: FINDINGS Multilevel Central Spinal Stenosis with Nerve Root Compression DESCRIPTION OF PROCEDURE Fluoroscopically guided, contrast-controlled L5/S1 translaminar epidural steroid injection. Following review of allergy and review of potential side effects and complications, including, but not necessarily limited to, infection, allergic reaction, local tissue breakdown, temporary as well as permanent nerve injury, paralysis, stroke and possible , the patient indicated that the patient understood and agreed to proceed. An informed consent document was signed by the patient, witnessed by a nurse, and placed in the patient's chart. Additionally, other treatment options including modalities, medications, and physical therapy were reviewed with the patient. After review of previous anaesthesic history and IV conscious sedation the patient was deemed safe to proceed with today?s procedure with IV conscious sedation as ASA class II designation. Safety time-out was performed to confirm patient ID, procedure to be performed and site of procedure. IV sedation was accomplished with a combination of 2mg of Versed and 50mcg of Fentanyl administered by the RN after DO order, titrated to patient comfort during the course of the procedure while the patient remained responsive to all verbal commands. In the prone position, following sterile prep and drape of the lumbar region, the L5/S1 translaminar space was identified fluoroscopically. The skin was anesthetized via a 25-gauge, 1.5-inch needle with 1% lidocaine solution. At this point, a 22-gauge short bevel spinal needle was atraumatically introduced and advanced under fluoroscopic guidance into the region of the L5/S1 translaminar space. Depth was confirmed on lateral view. Radiological data, including multiple fluoroscopic views of the lumbar spine, reveal a spinal needle at the L5/S1 translaminar space. Lateral views then show placement of the needle in the epidural space. Subsequent views show contrast material flowing superiorly and inferiorly in the epidural space. No vascular or intrathecal uptake is observed. At this point, using loss of resistance technique with saline and air, the epidural space was entered. This was confirmed following negative aspiration with injection of approximately 1.5cc of Isovue 200, showing excellent epidural flow without vascular or intrathecal uptake. At this point, 1 cc of 1% lidocaine solution combined with 3cc or 20mg of dexamethasone and 6mg of betamethasone was injected without incident. The patent tolerated the procedure without signs of symptoms of complications prior to transfer to the recovery area for further monitoring. The patient was then transferred to the recovery area where they were observed for an appropriate period of time after the injection. The patient reported a VAS score of 6 prior to the procedure and a post-procedure VAS of 0. POST OP INSTRUCTIONS The patient was provided a Pain Log to continue to record their response to the target-specific procedure prior to follow-up visit with their referring physician. Additionally, specific post-injection care instructions and a contact number to our office were provided if concerns arise regarding possible complications associated with the procedure are suspected.
== END 2020-12-03 10:10 | disposition home or self-care (01) ==
LOC: RAD 08:47
PROVIDERS: PCP Family Medicine; Referring Provider Physical Medicine & Rehabilitation; Visit Provider Physical Medicine & Rehabilitation
DX: M48.07 Spinal stenosis, lumbosacral region (principal); M51.17 Intervertebral disc disorders with radiculopathy, lumbosacral region
CPT/HCPCS: 62323; J0702; J1100; J2250; J3010